=== PATIENT | female | born 2000 | race Caucasian/White ===

== ENCOUNTER 2024-09-20 12:59 | Emergency (ER) | payer MEDICAID, SELFPAY ==
[2024-09-20 13:27] VITALS: BP 102/65; PULSE 82; RESP 18; TEMP 36.7; O2SAT 100; BMI 20.5
[2024-09-20 14:10] LABS: Basophils % (Auto) 0 % (0-2.5); Eosinophils # (Auto) 0.1 Thou/mm3 (0.0-0.5); Eosinophils % (Auto) 1 % (0-10); Hematocrit 32.3 % (36.0-46.0); Hemoglobin 11.5 g/dL (12.0-16.0); Immature Granulocytes % (Auto) 0 % (0-0); Immature Granulocytes Auto 0.01 Thou/mm3 (0.00-0.00); Lymphocytes # (Auto) 1.7 Thou/mm3 (1.0-4.8); Lymphocytes % (Auto) 20 % (10-50); Mean Corpuscular HGB Conc 35.6 g/dl (31.0-37.0); Mean Corpuscular Hemoglobin 30.1 pg (25.0-35.0); Mean Corpuscular Volume 85 fL (80-100); Monocytes # (Auto) 0.6 Thou/mm3 (0.0-0.8); Monocytes % (Auto) 7 % (0-12); Neutrophils # (Auto) 6.1 Thou/mm3 (1.8-7.7); Neutrophils % (Auto) 73 % (37-80); Nucleated Red Blood Cell % 0 /100 WBC (0); Platelet Count 222 Thou/mm3 (140-440); RDW Standard Deviation 40.4 fL (36.4-46.3); Red Blood Count 3.82 Miln/mm3 (4.00-5.20); White Blood Count 8.3 Thou/mm3 (3.6-11.0)
[2024-09-20 14:32] LABS: Collection Type, Urine Clean Catch
[2024-09-20 14:49] LABS: Bilirubin,Urine Negative (Negative); Blood,Urine Negative (Negative); Clarity,Urine Clear (Clear/Hazy); Color,Urine Lt-Yellow (Lt Yel-Yel); Culture Indicated,Urine Not Indicated; Glucose, Urine Negative (Negative); Ketones,Urine Negative (Negative); Leukocyte Esterase,Urine Positive (Negative); Nitrite,Urine Negative (Negative); PH,Urine 6.5 (5.0-7.0); Protein,Urine Negative (Neg - Trace); RBC,Urine 1 /hpf (0-3); Squamous Epithelial Cell,Urine 4 /hpf (0-5); Urobilinogen,Urine Negative mg/dL (0.0-1.0); WBC,Urine 10 /hpf (0-5)
[2024-09-20 15:00] LABS: Alanine Aminotransferase 18 U/L (10-49); Albumin, Serum 4.4 gm/dL (3.5-5.0); Albumin/Globulin Ratio 1.7 (1.2-2.2); Alkaline Phosphatase 51 U/L (46-116); Anion Gap 9 (7-16); Aspartate Amino Transferase 28 U/L (0-34); BUN/Creatinine Ratio 13 Ratio (12-20); Bilirubin,Total 0.5 mg/dL (0.3-1.2); Blood Urea Nitrogen 8 mg/dL (9-23); Calcium 8.7 mg/dL (8.3-10.6); Calcium (Corrected) 8.7 mg/dL (8.5-10.1); Carbon Dioxide 23.1 mMol/L (20.0-31.0); Chloride 107 mMol/L (98-107); Creatinine (Component) 0.6 mg/dL (0.6-1.3); Estimated Creatinine Clearance 125.3 mL/min (>60); Globulin 2.6 gm/dL (2.3-3.5); Glucose 85 mg/dL (74-106); Lipase 32 U/L (12-53); Osmolality,Calculated 274 (275-295); Sodium 139 mMol/L (136-145); eGFR > 60 See Note
[2024-09-20 15:11] LABS: HCG Qualitative,Urine Positive
[2024-09-20 15:37] LABS: Beta HCG,Quantitative 127179 mIU/mL (<5.0)
--- NOTE | 2024-09-20 15:51 | XR_ITS ---
Examination: Complete OB ultrasound, less than 14 weeks, transabdominal Date and time of exam: September 20, 2024 1554 hrs. Indications: Pelvic pain beginning 2 weeks ago Technique: Obstetrical ultrasound images less than 14 weeks performed via transabdominal imaging Findings: A normal shaped single intrauterine gestation is present in the uterus. pole 1.04 cm corresponds to 7 weeks 1 day gestational age Cardiac motion 185 BPM Intrauterine device noted in the endometrium Right ovary 3.2 cm arterial flow Left ovary 3.1 cm arterial flow Ultrasonographic survey of visible and placental structures unremarkable. Amniotic fluid volume appears appropriate for this estimated gestational age. Impression: Viable intrauterine gestation 7 weeks 1 day Consider short-term follow-up pelvic sonography given the cardiac rate 185 BPM.
--- NOTE | 2024-09-20 16:22 | PD.EDFMALE ---
ED Female Urogenital RME/HPI General Chief complaint: Abdominal Pain Stated complaint: SHARP VAGINAL PAIN +PREG Time Seen by Provider: 09/20/24 13:18 Arrival date/time: 09/20/24 12:59 24-year-old female presents to the emergency department today stating that she had a positive test at home patient reports that she has an IUD in place so wants to confirm that she actually is in fact patient also reports pelvic pain patient reports no bleeding Limitations: no limitations Related Data Home Medications ?Medication ?Instructions ?Recorded ?Confirmed [id number] 1 mg 1 tab PO QDAY 09/15/20 06/10/23 tablet Previous Rx's ?Medication ?Instructions ?Recorded cephalexin 500 mg capsule 500 mg PO BID 5 days #10 caps 09/20/24 Allergies Allergy/AdvReac Type Severity Reaction Status Date / Time No Known Allergies Allergy Verified 09/20/24 13:03 Review of Systems Review of Systems Systems Reviewed: All systems reviewed, normal except as documented Constitutional Constitutional: Reports system reviewed and no additional complaints, except as documented, Denies fever(s) and Denies headache(s) Eyes Eyes: Reports system reviewed and no additional complaints, except as documented and Denies blurry vision ENT Ears, Nose, Mouth, and Throat: Reports system reviewed and no additional complaints, except as documented, Denies headache(s), Denies nasal congestion and Denies nasal discharge Cardiovascular Cardiovascular: Reports system reviewed and no additional complaints, except as documented, Denies chest pain and Denies dyspnea Respiratory Respiratory: Reports system reviewed and no additional complaints, except as documented, Denies chest congestion, Denies cough and Denies dyspnea Gastrointestinal Gastrointestinal: Reports system reviewed and no additional complaints, except as documented and Denies abdominal pain Genitourinary Genitourinary: Reports system reviewed and no additional complaints, except as documented, Denies abnormal vaginal bleeding, Reports pelvic pain, Denies vaginal discharge, Denies vaginal odor and Denies vaginal pruritus Integumentary/Breasts Skin/Breast: Reports system reviewed and no additional complaints, except as documented and Denies rash Neurologic Neurologic: Reports system reviewed and no additional complaints, except as documented, Reports as per HPI and Denies headache(s) Past Medical History Past Medical History NEUROLOGIC: Negative Neurological Disorders CARDIAC: Negative Cardiac Disorders or Congestive Heart Failure RESPIRATORY: Negative Chronic Obstructive Pulmonary Disease (COPD) GASTROINTESTINAL: Negative Gastrointestinal Disorders, Hepatitis or Colorectal Cancer GENITOURINARY: Negative Genitourinary Disorders, Renal Disease or Prostate Cancer REPRODUCTIVE: Positive Previous Pregnancies (2); Negative Breast Cancer, Endometriosis, Genital Herpes, Gonorrhea, Pelvic Inflammatory Disease, Syphilis, Testicular Cancer or Uterine Prolapse MUSCULOSKELETAL: Negative Musculoskeletal Disorders or Bone Cancer ENDOCRINE: Negative Endocrine Disorders, Diabetes Mellitus Type 1 or Diabetes Mellitus Type 2 HEMATOLOGIC: Positive Blood Disorders and Anemia; Negative Leukemia, Hemophilia, Thalassemia, Sickle Cell Disease or Clotting Problems OTHER HISTORY: Negative Hospitalization, Autoimmune Disease, Down Syndrome, Developmental Delay, Shingles, Falls, Blood Transfusions, Blood Transfusion Reaction, Anesthesia Reactions, Organ Transplant, Chemotherapy, Radiation Therapy, Hyperbaric Therapy, MRSA, VRSA, Vancomycin-Resistant Enterococci, Human Immunodeficiency Virus (HIV), Chicken Pox, Measles, Mumps, Rubella (Telugu Measles), Pertussis, Clostridium Difficile, Cancer, Breast Cancer, Cervical Cancer, Colorectal Cancer, Lung Cancer, Ovarian Cancer, Prostate Cancer or Testicular Cancer Family History FAMILY HISTORY: Positive Family Cardiac Disorders (pacemaker-grandmother); Negative Family Psychiatric Problems, Family Respiratory Disorders, Family Gastrointestinal Problems, Family Cancer, Family Surgery or Family Anesthesia Reaction Surgical History SURGICAL: Negative Cardiac Surgery, Endocrine Surgery, Ear Surgery, Abdominal Surgery, Nephrectomy, Joint Replacement, Neurologic Surgery, Mastectomy, Section, Vasectomy or Organ Transplant Social History SMOKING STATUS: Never smoker ED Exam General Limitations: Present no limitations General appearance: Present alert and in no apparent distress Head Head exam: Present atraumatic Eye Eye exam: Present normal appearance, PERRL and EOMI ENT ENT exam: Present normal exam, normal oropharynx and mucous membranes moist Neck Neck exam: Present normal inspection, full ROM and trachea midline Chest Chest inspection: Present normal inspection and symmetric chest wall rise Respiratory Respiratory exam: Present normal lung sounds bilaterally Cardiovascular Cardiovascular exam: Present regular rate, normal rhythm and normal heart sounds Abdominal Exam Abdominal exam: Present soft and normal bowel sounds Extremities Exam Extremities exam: Present normal inspection and full ROM Back Exam Back exam: Present normal inspection and full ROM Neurological Exam Neurological exam: Present alert, oriented X3 and CN II-XII intact Psychiatric Psychiatric exam: Present normal affect and normal mood Skin Skin exam: Present warm, dry, intact and normal color Course Quality Measures none Orders Category Date Time Status US OB <= 14 weeks fetus Stat Exams 09/20/24 15:51 Completed Beta HCG,Quantitative Stat Lab 09/20/24 13:40 Completed CBC Stat Lab 09/20/24 13:40 Completed Comprehensive Metabolic Panel Stat Lab 09/20/24 13:40 Completed HCG Qualitative,Urine Stat Lab 09/20/24 14:05 Completed Lipase Stat Lab 09/20/24 13:40 Completed UA, C/S IF [Urinalysis, C/S if Indicated] Stat Lab 09/20/24 14:05 Completed Vital Signs Vital signs: Vital Signs Temperature 98.0 F 09/20/24 13:27 Pulse Rate 82 09/20/24 13:27 Respiratory Rate 18 09/20/24 13:27 Blood Pressure 102/65 09/20/24 13:27 Pulse Oximetry (%) 100 09/20/24 13:27 Oxygen Delivery Method Room Air 09/20/24 13:27 O2 saturation 100% room air within normal limits Urogenital - Female MDM Narrative MDM Narrative:: 24-year-old female presents to the emergency department today stating that she had a positive test at home patient reports that she has an IUD in place so wants to confirm that she actually is in fact patient also reports pelvic pain On exam patient well-appearing patient is not appear toxic in no acute distress Lab work and imaging obtained imaging consistent with viable at this time lab work consistent with Urinalysis consistent with UTI patient be treated course of antibiotics Patient referred to OB clinic Patient discharged home in no distress to follow-up with primary care doctor in the next 24 to 48 hours and for any worsening symptoms to return to the ER immediately Patient data External records reviewed:: [facility] previous records Clinical information provided by:: patient Social determinants that could affect healthcare access:: none Patient has the following chronic illnesses:: None How is presenting disease/condition affected by chronic disease/condition?: no chronic disease Evaluation data The following diagnostics were reviewed and interpreted by me:: lab results and radiology exam(s) Lab and/or radiology exams considered but not ordered:: Labs and radiology obtain Interpretation Summary: Reviewed by me Medications / Prescriptions Medications or Prescriptions considered but not ordered:: Given Medication administrations:: Given Consultations Consultation(s) initiated? (list below): No Diagnosis Urogenital Female Differential Diagnosis: urinary tract infection and cystitis Most likely diagnosis given after review of the tests above:: UTI Admission Indicated Admission indicated?: not indicated Admission Request Was there a request for admission?: No Disposition Plan Disposition Plan: Discharge Discharge Attestation Discharge Attestation: The patient and all family members were given an opportunity to ask questions and understood the discharge instructions. Discharge instructions specifically effects, indications for sooner follow up or return to the emergency department, and the expected course of current diagnosis. Patient condition: Stable Discharge Plan Plan Patient Disposition: HOME (Self Care) Discharge Disposition comment: Stable Prescriptions/Referrals Prescriptions/Med Rec: New cephalexin 500 mg capsule 500 mg PO BID 5 Days Qty: 10 0RF No Action 1 mg Tablet 1 tab PO QDAY Referrals: Humphrey Scott MD [Physician] - 09/23/24 Problem List Clinical Impression: UTI (urinary tract infection), Pelvic pain affecting Patient/Caregiver Discharge Instructions Education Materials: Medicine for Pain Additional Instructions: Please follow-up in Dr. Scott's office Sunday at 9 AM inform the staff that you were seen in the ER and Dr. Scott states he will see you in his office Print Language: Japanese Stand Alone Forms: Mary Award Info., Patient Portal Info Letter PA/DWIGHT Supervising Physician WANDA/DWIGHT Supervising Physician: Dr akers
== END 2024-09-20 16:45 | disposition home or self-care (01) ==
PROVIDERS: Nurse Practitioner Primary Care; Emergency Provider Family Medicine; PCP Family Medicine
DX: N39.0 Urinary tract infection, site not specified (principal); O23.41 Unspecified infection of urinary tract in pregnancy, first trimester; Z3A.01 Less than 8 weeks gestation of pregnancy
CPT/HCPCS: 36415; 76801; 80053; 81001; 81025; 83690; 84702; 85025; 99284

== ENCOUNTER 2024-09-23 09:44 | Outpatient (AMB) | payer MEDICAID, SELFPAY ==
--- NOTE | 2024-09-23 10:48 | AMB.OBINITIA ---
Allergies/Home Meds Allergies & Medications Allergies No Known Allergies Allergy (Verified 09/20/24 13:03) Intake Visit Data Collection New Patient or Established: Established Patient (seen at [facility] within 3 years) Reason for Visit:: ER Follow Up Do You Feel Safe at Home: Yes Authorities Contacted: N/A PCP or OBGYN visit in last 3 months: No Smoking Status Smoking Status: Never smoker Questionnaires Social History Living Situation History Housing: House Tobacco History Smoking Status: Never smoker Alcohol History Alcohol Intake: Never Substance Use History Substance Use: thc Domestic Abuse History Do You Feel Safe at Home: Yes History of Present Illness HPI Narrative The patient presented for follow-up after a positive home test and ER visit, with an IUD in place. She initially presented to the ER on September 16, 2024, with a positive home test. During the ER visit, she had a serum hCG of 127,000 and an ultrasound on September 20, 2024, which showed a viable intrauterine gestation of 7 weeks and 1 day with a heart tone of 185 bpm. The ultrasound also noted an intrauterine device in the endometrium. The patient is seeking information about her options regarding the , including continuing the , adoption, and . She states that she hasn't made a decision yet and would like to know all her options. The patient has not reported any specific symptoms or concerns related to the at this time. Given the presence of the IUD, the patient has been informed that it will need to remain in place throughout the to avoid risking miscarriage. The IUD is embedded in the endometrium but is not interfering with the sac. LMP Unknown LIZ by LMP ? Ultrasound #1 09/20/2024 [place] at [facility] 7w1d LIZ by US #1:05/08/2025 Final LIZ 05/08/2025 Basis for Final LIZ 7w1d Sono Previous Section? LMP Unknown LIZ by LMP ? Ultrasound #1 09/20/2024 [place] at us 7w1d LIZ by US #1:05/08/2025 Final LIZ 05/08/2025 Basis for Final LIZ 7w1d Sono Previous Section? 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: Past Medical History Past Medical History: No Hx Neurological Disorders, No Hx Breast Cancer, No Hx Cardiac Disorders, No Hx Cancer, Yes Hx Blood Disorders, Yes Hx Anemia, No Hx Gastrointestinal Disorders, No Hx Renal Disease, No Hx Diabetes Mellitus Type 1 and No Hx Diabetes Mellitus Type 2 OB Initial Visit Menstrual History Menstrual reliability: approximate (month known) Flow: normal Menstrual regularity: regular Monthly: Yes Age at menarche: 12 On control pills at conception: No OB History : 3 Para: 3 Hx # Pregnancies: 1 Hx Total # of Abortions (Spontaneous & Elective): 0 # of Living Children: 3 Delivery History 1st : Child's name: MICHELLE date: 09/16/20 sex: female Gestational age at delivery (weeks): 27 Delivery type: vaginal weight (lbs): 907.185 g Delivery complications: PRE-TERM History of depression before or after : No 2nd : Child's name: ISABELLA date: 12/31/21 sex: male Delivery type: vaginal weight (lbs): 3175.147 g Delivery complications: NA History of depression before or after : No 3rd : Child's name: VINEET date: 06/11/23 sex: male Delivery type: vaginal weight (lbs): 3175.147 g Delivery complications: NA History of depression before or after : No Infection History & Risk Evaluation History of STDs: none HIV risk evaluation: low risk Hepatitis B risk evaluation: low risk Patient or partner has history of Genital Herpes: No Varicella/chicken pox status: immunized Genetic Screening & History Genetic Screening/Teratology Counseling - Includes patient, baby's father, or anyone in either family with: 1. Patient's age 35 years or older as of estimated date of delivery: No 2. Thalassemia (Danish, Kazakh, Mediterranean, or Background); MCV less than 80: No 3. Neural Tube Defect (Meningomyelocele, Spina Bifida, or Anencephaly): No 4. Congenital Heart Defect: No 5. Down Syndrome: No 6. Puneet-Sachs (Ashkenazi [place], Cajun, Maori [place]): No 7. Fermin Disease ([place]kenazi [place]): No 8. Familial Dysautonomia ([place]kenazi [place]): No 9. Sickle Cell Disease or Trait (): No 10. Hemophilia or other blood disorders: No 11. Muscular Dystrophy: No 12. Cystic Fibrosis: No 13. Imhaela's Chorea: No 14. Mental Retardation/Autism: No 15. Other inherited genetic or chromosomal disorder: No 16. Maternal Metabolic Disorder (EG,TYPE 1 Diabetes, PKU): No 17. Patient or baby's father had a child with defects not listed above: No 18. Recurrent loss or a stillbirth: No 19. Medications (including supplements, vitamins, herbs or otc drugs)/illicit/recreational drugs/alcohol since last menstrual period: No 20. Any other: No Infection History 1. Live with someone with TB or exposed to TB: No 2. Rash or viral illness since last menstrual period: No 3. Hepatitis B,C: No Other (see comments) Source: [employer] Exam General General Appearance: alert, in no apparent distress and healthy appearing Head Head exam: atraumatic Neck Neck exam: Present normal inspection and trachea midline Chest Chest inspection: Present normal inspection and symmetric chest wall rise External exam: Present normal external exam; Absent tenderness Neuro Neurological exam: Present oriented X3 Psych Psychiatric exam: Present normal affect and normal mood Results Objective Laboratory: Diagnostic Test Results and Labs: - Serum hCG (09/16/2024): 127,000 Imaging: - Ultrasound (09/20/2024): - Viable intrauterine gestation - Gestational age: 7 weeks and 1 day - heart rate: 185 bpm - Intrauterine device noted in the endometrium - Both ovaries appeared normal Office Procedures OB Clinic LOC & Office Proc's Nursing/Assessment Patient Status: Established Patient OB Clinic Nursing Assessment: Medication Reconciliation, Update PMH in EMR and Vital Signs OB Clinic Coordination of Care: Education Complex Pt/Fam, Consent,records obtained, informed consent, Lab and Imaging orders and Staff clarify orders Special Needs: Heart tones Established Patient Charge Established Patient Point Assignment: 110 Established Patient Point Charge: EP Level 3 (80-115) Bedside Ultrasounds US Transabdominal <14 weeks at bedside: Yes Assessment & Plan Diagnosis / Problem List (1) Pelvic pain affecting : Status: Acute (2) UTI (urinary tract infection): Status: Acute Plan Intrauterine with IUD in situ: - Viable intrauterine gestation at 7 weeks and 1 day confirmed by ultrasound. - heart tones of 185 bpm. - IUD embedded in endometrium. - Removal not recommended due to high miscarriage risk. Plan: - Continue expectant management of with IUD in situ. - Sp[place] Carver patient on risks and benefits of continuing with IUD in place. - Provide options for management: continuation, adoption, or termination. - If continuing : - Provide lab requisition for initial labs. - Schedule follow-up visit. - If terminating : - Provide referral for services in [place] or [place]. - If considering adoption: - Defer detailed adoption counseling until 27-30 weeks gestation. - Anticipate possible spontaneous IUD expulsion during delivery. - Plan for IUD removal post-delivery if not spontaneously expelled. Management Options: Continuation of : Benefits: - Opportunity to carry to term. - Potential for successful despite IUD presence. Risks: - Increased risk of complications due to IUD presence. - Possible spontaneous miscarriage. Adoption: Benefits: - Allows to continue while providing opportunity for child placement. - Support available through adoption agencies. Risks: - Emotional challenges of and placement process. - Same medical risks as continuing with IUD. Termination: Benefits: - Immediate resolution of -related risks. - Avoids complications associated with IUD and . Risks: - Emotional and psychological impacts. - Procedure-related risks. Reviewed all options for management with IUD in situ: - Expectant management with close monitoring. - IUD removal (not recommended due to high miscarriage risk). - termination if desired by patient. - Adoption services if patient chooses to continue but not parent.
== END 2024-09-23 11:02 | disposition home or self-care (01) ==
LOC: HODSOBC 09:44
PROVIDERS: PCP Family Medicine; Referring Provider Family Medicine; Supervising Provider Obstetrics & Gynecology; Visit Provider Obstetrics & Gynecology
DX: O09.891 Supervision of other high risk pregnancies, first trimester (principal); O23.41 Unspecified infection of urinary tract in pregnancy, first trimester; N39.0 Urinary tract infection, site not specified; Z3A.01 Less than 8 weeks gestation of pregnancy; Z97.5 Presence of (intrauterine) contraceptive device
CPT/HCPCS: 76801; 99213; G0463

== ENCOUNTER 2024-10-02 23:23 | Observation (INO) | payer MEDICAID, SELFPAY ==
[2024-10-02 23:24] VITALS: BMI 19.7
[2024-10-02 23:51] VITALS: BP 114/68; PULSE 88; RESP 18; TEMP 36.8; O2SAT 99
[2024-10-03] VITALS (15 sets, daily range): BP systolic 94–107; BP diastolic 44–76; PULSE 58–97; RESP 16–19; TEMP 36.3–37.2; O2SAT 97–100; BMI 19.7
--- NOTE | 2024-10-03 00:04 | EDNOTE_ITS ---
ED OB Contraction Preg RMI/HPI General Chief complaint: Vaginal Bleeding Stated complaint: 8WKS PREG VAG BLEEDING AND LOW ABD PAIN Time Seen by Provider: 10/03/24 00:04 Arrival date/time: 10/02/24 23:23 RME / HPI RME / HPI Narrative: This section includes all my notes and documentations, including HPI, PE, and ED course. En Salas MD HPI: 24yo female with no significant past medical history presents to the ED for complains of lower abdominal pain and vaginal bleeding. Patient states she started having significant vaginal bleeding and abdominal pain at 2300, reporting her symptoms would not resolve, so she came in for evaluation. Patient denies any fever, chills, N/V or any other associated symptoms. No other complaints reported. ROS: All negative except as documented in HPI. Physical Exam: General:? Alert and oriented.? Eyes:? Conjunctivae and lids clear.? EOMI.? PERRL. ENT:? No signs of head trauma. Neck:? Supple.? No tenderness. Heart:? RRR.? Lungs:? No respiratory distress.? Good air movement.? No rhonchi, wheezing, rales.?? Chest:? No tenderness. Abdomen:? Soft and nontender.? Normal bowel sounds.? No distension.? No rebound or guarding.?? Back:? No tenderness.?? Skin:? Warm and dry.?? Neuro:? Alert and oriented X 3.? Cranial Nerves II-XII grossly intact.? No peripheral motor deficits. Musculoskeletal: Remarkable for right wrist tenderness/deformity. All other major joints and bones are not tender with no limited ROM.? I reviewed all diagnostic test results. My review of the ultrasound is intrauterine gestation with a single live fetus of mean gestational age 9 weeks and 3 days. Blood tests are remarkable except elevated beta-hCG. At this point, diagnoses include threatened miscarriage. Treatment here included NS, Morphine, and Zofran. Patient was going to be discharged with the following instructions. Discharge Instructions from Dr. Salas: 1.? ? ? After evaluation, your baby is alive and doing well. 2.? ? ? Today, estimated gestational age is 9 3/7 weeks. 3.? ? ? Only time will determine whether you will have a successful or you will have a miscarriage.? If your symptoms stop, you can have a successful .? If your symptoms worsen, you may have a miscarriage.? If you have a miscarriage, unfortunately we won?t be able to save the baby because it?s too early.? Under 20 weeks, unfortunately we can?t help.?? 4.? ? ? See a private doctor on 10/06/2024 for recheck and further care.? No sexual activity until cleared by a doctor taking care of you.?? Ask to review all test results and official radiology reports, to make sure you receive all necessary follow-ups and monitoring. 5.? ? ? Seek immediate medical care for severe bleeding (soaking more than 3 pads per hour), intolerable pain, or with any concerns.? Prior to discharge, large vaginal bleeding noted with fetus. Confirmed with repeat ultrasound. Hemoglobin decreased significantly to 8.7. At 0344, I discussed the case with our [employer], Dr. Scott. About the presentation and exam and diagnostics and treatments here. And need of further care in the hospital. Will accept the patient. Patient was given O- blood, TXA, IV fluid, and Methergine. En Salas MD Related Data Home Medications ?Medication ?Instructions ?Recorded ?Confirmed [id number] 1 mg 1 tab PO QDAY 1 06/10/23 tablet Previous Rx's ?Medication ?Instructions ?Recorded doxycycline monohydrate 100 mg 100 mg PO BID 7 days #1 4 caps 10/03/24 capsule hydrocodone 5 mg-acetaminophen 325 1 tab PO Q6H PRN pa in 3 days #12 10/03/24 mg tablet tabs ondansetron 4 mg disintegrating 4 mg PO Q6H PRN nausea and 10/03/24 tablet vomiting 5 days #20 tabs Allergies Allergy/AdvReac Type Severity Reaction Status Date / Time No Known Allergies Allergy Verified 10/02/24 23:27 Review of Systems Review of Systems Systems Reviewed: All systems reviewed, normal except as documented Past Medical History Past Medical History NEUROLOGIC: Negative Neurological Disorders CARDIAC: Negative Cardiac Disorders or Congestive Heart Failure RESPIRATORY: Negative Chronic Obstructive Pulmonary Disease (COPD) GASTROINTESTINAL: Negative Gastrointestinal Disorders, Hepatitis or Colorectal Cancer GENITOURINARY: Negative Genitourinary Disorders, Renal Disease or Prostate Cancer REPRODUCTIVE: Positive Previous Pregnancies (2); Negative Breast Cancer, Endometriosis, Genital Herpes, Gonorrhea, Pelvic Inflammatory Disease, Syphilis, Testicular Cancer or Uterine Prolapse MUSCULOSKELETAL: Negative Musculoskeletal Disorders or Bone Cancer ENDOCRINE: Negative Endocrine Disorders, Diabetes Mellitus Type 1 or Diabetes Mellitus Type 2 HEMATOLOGIC: Positive Blood Disorders and Anemia; Negative Leukemia, Hemophilia, Thalassemia, Sickle Cell Disease or Clotting Problems OTHER HISTORY: Negative Hospitalization, Autoimmune Disease, Down Syndrome, Developmental Delay, Shingles, Falls, Blood Transfusions, Blood Transfusion Reaction, Anesthesia Reactions, Organ Transplant, Chemotherapy, Radiation Therapy, Hyperbaric Therapy, MRSA, VRSA, Vancomycin-Resistant Enterococci, Human Immunodeficiency Virus (HIV), Chicken Pox, Measles, Mumps, Rubella ([place]ian Measles), Pertussis, Clostridium Difficile, Cancer, Breast Cancer, Cervical Cancer, Colorectal Cancer, Lung Cancer, Ovarian Cancer, Prostate Cancer or Testicular Cancer Family History FAMILY HISTORY: Positive Family Cardiac Disorders (pacemaker-grandmother); Negative Family Psychiatric Problems, Family Respiratory Disorders, Family Gastrointestinal Problems, Family Cancer, Family Surgery or Family Anesthesia Reaction Surgical History SURGICAL: Negative Cardiac Surgery, Endocrine Surgery, Ear Surgery, Abdominal Surgery, Nephrectomy, Joint Replacement, Neurologic Surgery, Mastectomy, Section, Vasectomy or Organ Transplant Social History SMOKING STATUS: Current some day smoker ED Exam Narrative Physical exam: As noted in HPI. Course Quality Measures none Orders Category Date Time Status Patient Condition Routine Admission 10/03/24 04:06 Ordered SDC [Place in Surgical Day Care] Routine Admission 10/03/24 04:06 Active Activity as Tolerated Routine Care 10/03/24 04:06 Ordered Administer Rhogam NOW Care 10/03/24 01:44 Active COVID-19 Screening Questionnaire NOW Care 10/03/24 04:36 Active Clip Operative Site as Needed X1 Care 10/03/24 04:06 Active Decision to Admit X1 Care 10/03/24 04:36 Active May take PO meds w/sips of H2O PRN Care 10/03/24 04:06 Active NPO NOW Care 10/03/24 04:06 Active Obtain Written Consent For: NOW Care 10/03/24 04:06 Active Saline [Insert IV] NOW Care 10/03/24 00:04 Active Sequential Compression Device NOW Care 10/03/24 04:06 Active Transfuse,blood/blood products NOW Care 10/03/24 03:36 Active Consult to Obstetrics Stat Cons 10/03/24 03:45 Ordered Diet NPO (NOW) Diet 10/03/24 04:06 Active US OB <= 14 weeks fetus Stat Exams 10/03/24 00:05 Taken US OB <= 14 weeks fetus Stat Exams 10/03/24 02:20 Ordered Beta HCG,Quantitative Stat Lab 10/03/24 00:25 Completed CBC Stat Lab 10/03/24 00:25 Completed CBC Stat Lab 10/03/24 02:44 Completed CMP [Comprehensive Metabolic Panel] Stat Lab 10/03/24 00:25 Completed Free T4 (Free Thyroxine) Stat Lab 10/03/24 00:25 Completed Magnesium Stat Lab 10/03/24 00:25 Completed PT [Prothrombin Time with INR] Stat Lab 10/03/24 00:25 Completed PTT [Partial Thromboplastin Time] Stat Lab 10/03/24 00:25 Completed RHOGAM [Rho(D) Immune Globulin] Stat Lab 10/03/24 00:25 Results TSH [Thyroid Stimulating Hormone] Stat Lab 10/03/24 00:25 Completed Type and Screen Stat Lab 10/03/24 00:25 Results UA, C/S IF [Urinalysis, C/S if Indicated] Stat Lab 10/03/24 00:05 Ordered prbc [Red Blood Cells] Stat Lab 10/03/24 00:25 Results Ketamine Inj Med 10/03/24 04:15 Discontinued 50 mg .ROUTE .STK-MED ONE Methylergonovine Inj [Methergine Inj] Med 10/03/24 03:45 Discontinued 0.2 mg IM X1 ONE Morphine Inj Med 10/03/24 00:04 Discontinued 6 mg IVP X1 ONE Ondansetron Inj [Zofran Inj] Med 10/03/24 00:04 Discontinued 4 mg IVP X1 ONE Propofol Inj [Diprivan Inj] Med 10/03/24 04:15 Discontinued 200 mg IV .STK-MED ONE Ringers Lactated 1000 ml [Lactated Ringers] 1,000 ml Med 10/03/24 04:15 Active IV 125 mls/hr Sodium Chloride 0.9% 1000 ml [Ns] 1,000 ml Med 10/03/24 00:04 Discontinued IV 999 mls/hr Sodium Chloride 0.9% 1000 ml [Ns] 1,000 ml Med 10/03/24 03:35 Discontinued IV 999 mls/hr Succinylcholine Inj [Anectine Inj] Med 10/03/24 04:15 Discontinued 200 mg .ROUTE .STK-MED ONE Tranexamic Acid 1,000 mg Ivpb [Tranexamic Acid Ivpb] Med 10/03/24 03:38 Discontinued 1,000 mg in 100 ml IV X1 Code Status Routine Oth 10/03/24 04:06 Ordered Vital Signs Vital signs: Vital Signs Temperature 98.2 F 10/02/24 23:51 Pulse Rate 88 10/02/24 23:51 Respiratory Rate 18 10/02/24 23:51 Blood Pressure 114/68 10/02/24 23:51 Pulse Oximetry (%) 99 10/02/24 23:51 Oxygen Delivery Method Room Air 10/02/24 23:51 Vaginal Bleeding MDM Narrative MDM Narrative: Scribe Attestation: 10/02/24 - Rios, Caity Dinh am scribing for and in the presence of Dr. Salas. 24yo female with no significant past medical history presents to the ED for complains of lower abdominal pain and vaginal bleeding. Patient states she started having significant vaginal bleeding and abdominal pain at 2300, reporting her symptoms would not resolve, so she came in for evaluation. Patient denies any fever, chills, N/V or any other associated symptoms. No other complaints reported. Patient data External records reviewed:: [facility] previous records (Per chart review, patient was seen here on 09/20/24 for pelvic pain in .) Clinical information provided by:: patient Social determinants that could affect healthcare access:: none Patient has the following chronic illnesses:: none How is presenting disease/condition affected by chronic disease/condition?: no chronic disease Evaluation data The following diagnostics were reviewed and interpreted by me:: lab results and radiology exam(s) Lab and/or radiology exams considered but not ordered:: none Interpretation Summary: I reviewed all diagnostic test results. My review of the ultrasound is intrauterine gestation with a single live fetus of mean gestational age 9 weeks and 3 days. Blood tests are remarkable except elevated beta-hCG. Repeat ultrasound showed no fetus. Repeat hemoglobin decreased significantly to 8.7. Medications / Prescriptions Medications or Prescriptions considered but not ordered:: none Medication administrations:: Medication Administration History Lactated Ringer's (Lactated Ringers) 1,000 mls @ 125 mls/hr IV .Q8H SHIV Stop: 11/02/24 04:14 Discontinued Medications Sodium Chloride (Ns) 1,000 mls @ 999 mls/hr IV .Q1H1M ONE Stop: 10/03/24 01:04 Last Infusion: 10/03/24 01:26 Dose: Infused Documented By: Admin: 10/03/24 00:18 Dose: 999 mls/hr Documented By: JON Sodium Chloride (Ns) 1,000 mls @ 999 mls/hr IV .Q1H1M ONE Stop: 10/03/24 04:35 Last Admin: 10/03/24 03:56 Dose: 999 mls/hr Documented By: SHADE Tranexamic Acid (Tranexamic Acid Ivpb) 1,000 mg in 100 mls @ 200 mls/hr IV X1 ONE Stop: 10/03/24 04:07 Last Infusion: 10/03/24 04:29 Dose: Infused Documented By: Admin: 10/03/24 03:59 Dose: 200 mls/hr Documented By: SHADE Ketamine HCl (Ketamine Inj 50 Mg/Ml Syringe) Confirm Administered Dose 50 mg .ROUTE .STK-MED ONE Stop: 10/03/24 04:16 Methylergonovine Maleate (Methylergonovine Inj 0.2 Mg/Ml Vial) 0.2 mg IM X1 ONE Stop: 10/03/24 03:46 Last Admin: 10/03/24 03:59 Dose: 0.2 mg Documented By: SHADE Morphine Sulfate (Morphine Sulf Inj 10 Mg/Ml Vial) 6 mg IVP X1 ONE Stop: 10/03/24 00:05 Last Admin: 10/03/24 00:18 Dose: 6 mg Documented By: JON Ondansetron HCl (Ondansetron Inj 2 Mg/Ml Inj 2 Ml) 4 mg IVP X1 ONE; Protocol Stop: 10/03/24 00:05 Last Admin: 10/03/24 00:18 Dose: 4 mg Documented By: JON Propofol (Propofol Inj 10 Mg/Ml Vial 20 Ml) Confirm Administered Dose 200 mg IV .STK-MED ONE Stop: 10/03/24 04:16 Succinylcholine Chloride (Succinylcholine Inj 20 Mg/Ml Vial 10 Ml) Confirm Administered Dose 200 mg .ROUTE .STK-MED ONE Stop: 10/03/24 04:16 NS, Morphine, Zofran initially. After large amount of vaginal bleeding with fetus and decreased hemoglobin she was given O- blood and TXA and IV fluid and Methergine. Consultations Consultation(s) initiated? (list below): Yes Consultation #1 (Physician, Specialty, Details): At 0344, I discussed the case with our [employer], Dr. Scott. About the presenta tion and exam and diagnostics and treatments here. And need of further care in the hospital. Will accept the patient. Diagnosis Vaginal Bleeding Differential Diagnosis: missed , threatened , dysfunctional uterine bleeding, menometrorrhagia, incomplete , ectopic without intrauterine and vaginal bleeding Most likely diagnosis given after review of the tests above:: Incomplete with vaginal hemorrhage. Admission Indicated Admission indicated?: indicated Explain why admission is indicated or not indicated:: Incomplete with vaginal hemorrhage needing emergent D&C. Admission Request Was there a request for admission?: Yes Admission Attestation Admission request attestation: Discussed case with [employer] service regarding admission. Discussed patients ED course, exam findings, labs, and radiology results. Agrees to accept the patient for admission. Disposition Plan Disposition Plan: Admit Discharge Plan Plan Patient Disposition: Admit Acute Care w/in Hospital Problem List Clinical Impression: Incomplete miscarriage, Severe anemia
--- NOTE | 2024-10-03 00:05 | XR_ITS ---
Examination: Complete OB ultrasound, less than 14 weeks, transabdominal Date and time of exam: October 03, 2024 1310 hours INDICATIONS: Severe pelvic pain beginning 2 days ago Technique: Obstetrical ultrasound images less than 14 weeks performed via transabdominal imaging Findings: A normal shaped single intrauterine gestation is present in the uterus. pole 2.6 cm corresponds to 9 weeks 3 days gestational age Intrauterine device noted anterior to the gestational sac Cardiac motion 176 BPM Ultrasonographic survey of visible and placental structures unremarkable. Amniotic fluid volume appears appropriate for this estimated gestational age. Right ovary 2.5 cm arterial flow Left ovary 2.8 cm arterial flow. IMPRESSION: Viable intrauterine gestation 9 weeks 3 days
[2024-10-03] MEDS: ONDANSETRON INJ 2 MG/ML INJ 2 ML 4 MG IVP (00:18)
[2024-10-03] MEDS: MORPHINE SULF INJ 10 MG/ML VIAL 6 MG IVP (00:18)
[2024-10-03] MEDS: SODIUM CHLORIDE 0.9% 1000 ML 1,000 ML 999 ML IV ×2 (00:18→03:56)
[2024-10-03 00:38] LABS: Basophils % (Auto) 0 % (0-2.5); Eosinophils # (Auto) 0.2 Thou/mm3 (0.0-0.5); Eosinophils % (Auto) 2 % (0-10); Hematocrit 35.6 % (36.0-46.0); Hemoglobin 13.1 g/dL (12.0-16.0); Immature Granulocytes % (Auto) 0 % (0-0); Immature Granulocytes Auto 0.04 Thou/mm3 (0.00-0.00); Lymphocytes # (Auto) 1.6 Thou/mm3 (1.0-4.8); Lymphocytes % (Auto) 17 % (10-50); Mean Corpuscular HGB Conc 36.8 g/dl (31.0-37.0); Mean Corpuscular Hemoglobin 30.3 pg (25.0-35.0); Mean Corpuscular Volume 82 fL (80-100); Monocytes # (Auto) 0.6 Thou/mm3 (0.0-0.8); Monocytes % (Auto) 7 % (0-12); Neutrophils % (Auto) 74 % (37-80); Nucleated Red Blood Cell % 0 /100 WBC (0); Platelet Count 216 Thou/mm3 (140-440); RDW Standard Deviation 38.9 fL (36.4-46.3); Red Blood Count 4.32 Miln/mm3 (4.00-5.20); White Blood Count 9.4 Thou/mm3 (3.6-11.0)
[2024-10-03 00:53] LABS: Partial Thromboplastin Time 27.5 Seconds (22.0-36.0); Prothrombin Time 11.3 Seconds (9.0-12.2)
[2024-10-03 01:40] LABS: Alanine Aminotransferase 33 U/L (10-49); Albumin, Serum 4.3 gm/dL (3.5-5.0); Alkaline Phosphatase 55 U/L (46-116); Anion Gap 11 (7-16); Aspartate Amino Transferase 36 U/L (0-34); BUN/Creatinine Ratio 17 Ratio (12-20); Bilirubin,Total 0.3 mg/dL (0.3-1.2); Blood Urea Nitrogen 12 mg/dL (9-23); Calcium 8.7 mg/dL (8.3-10.6); Calcium (Corrected) 8.7 mg/dL (8.5-10.1); Carbon Dioxide 21.9 mMol/L (20.0-31.0); Chloride 107 mMol/L (98-107); Creatinine (Component) 0.7 mg/dL (0.6-1.3); Estimated Creatinine Clearance 102.9 mL/min (>60); Free T4 (Free Thyroxine) 1.32 ng/dL (0.89-1.76); Globulin 2.2 gm/dL (2.3-3.5); Glucose 94 mg/dL (74-106); Magnesium 1.8 mg/dL (1.6-2.6); Osmolality,Calculated 279 (275-295); Potassium 3.7 mMol/L (3.4-5.1); Sodium 140 mMol/L (136-145); Thyroid Stimulating Hormone 1.25 uIU/mL (0.55-4.78); Total Protein 6.5 gm/dL (5.7-8.2); eGFR > 60 See Note
[2024-10-03 02:00] LABS: Beta HCG,Quantitative 121438 mIU/mL (<5.0)
--- NOTE | 2024-10-03 02:20 | XR_ITS ---
Examination: Complete OB ultrasound, less than 14 weeks, transabdominal Date and time of exam: October 03, 2024 0329 hours INDICATIONS: Severe pelvic pain with vaginal bleeding beginning 2 weeks ago Technique: Obstetrical ultrasound images less than 14 weeks performed via transabdominal imaging Findings: Uterus 13.7 cm endometrial stripe 0.6 cm No intrauterine gestation or uterine mass Right ovary 2.2 cm arterial flow Left ovary 2.6 cm arterial flow No fluid in the cul-de-sac IMPRESSION: No intrauterine gestation or uterine mass
[2024-10-03 03:06] LABS: Basophils % (Auto) 0 % (0-2.5); Eosinophils # (Auto) 0.2 Thou/mm3 (0.0-0.5); Eosinophils % (Auto) 2 % (0-10); Hematocrit 23.9 % (36.0-46.0); Immature Granulocytes % (Auto) 0 % (0-0); Immature Granulocytes Auto 0.04 Thou/mm3 (0.00-0.00); Lymphocytes % (Auto) 17 % (10-50); Mean Corpuscular HGB Conc 36.4 g/dl (31.0-37.0); Mean Corpuscular Hemoglobin 30.4 pg (25.0-35.0); Mean Corpuscular Volume 84 fL (80-100); Monocytes # (Auto) 0.7 Thou/mm3 (0.0-0.8); Monocytes % (Auto) 6 % (0-12); Neutrophils # (Auto) 8.7 Thou/mm3 (1.8-7.7); Neutrophils % (Auto) 75 % (37-80); Nucleated Red Blood Cell % 0 /100 WBC (0); Platelet Count 230 Thou/mm3 (140-440); RDW Standard Deviation 39.5 fL (36.4-46.3); Red Blood Count 2.86 Miln/mm3 (4.00-5.20); White Blood Count 11.7 Thou/mm3 (3.6-11.0)
[2024-10-03 03:08] LABS: Hemoglobin 8.7 g/dL (12.0-16.0)
[2024-10-03] MEDS: TRANEXAMIC ACID 1,000 MG IVPB 1,000 MG/100 ML BAG 200 MG IV (03:59)
[2024-10-03] MEDS: METHYLERGONOVINE INJ 0.2 MG/ML VIAL IM (03:59)
--- NOTE | 2024-10-03 04:11 | PD.GYNHP ---
Documentation for date of: 10/03/24 EPIDEMIOLOGY INTERN - HPI History of Present Illness Reason for admission: vaginal bleeding History of present illness: Patient presents with severe acute-onset uterine bleeding that started at 2300 hours last night. She is experiencing dizziness, lightheadedness, and constant vomiting. The patient has an IUD in place and is approximately 8 weeks . She had expressed desire for elective termination of during a visit to the office last week. Due to the severity of her symptoms, particularly the vomiting and vaginal bleeding, a physical examination could not be tolerated at the time of evaluation. She is a 24-year-old female with an early gestation of approximately 8 weeks. Her obstetric history is A0 L0. The patient's condition has deteriorated since arrival at the emergency room, with high volume hemorrhage and significantly high volume uterine bleeding. She appears to be in some amount of distress due to these symptoms. Her surgical history includes IUD placement (current). The patient is currently using an IUD as her only medication/supplement. Another ultrasound result pending, delivered shows empty gestational sac after she passed products of conception however she continues to bleed quite heavily Review of Systems Review of Systems Systems Reviewed: All systems reviewed, normal except as documented Meds Home Medications and Allergies Home Medications ?Medication ?Instructions ?Recorded ?Confirmed ?Type [id number]-FA 1 mg 1 tab PO QDAY 09/15/20 06/10/23 History tablet Allergies Allergy/AdvReac Type Severity Reaction Status Date / Time No Known Allergies Allergy Verified 10/02/24 23:27 Exam - EPIDEMIOLOGY INTERN Vital Signs Temp Pulse Resp BP Pulse Ox O2 Del Method 98.0 F 61 16 94/58 L 97 Room Air 10/03/24 02:52 10/03/24 03:59 10/03/24 03:58 10/03/24 03:59 10/03/24 03:58 10/03/24 03:58 Constitutional Constitutional: no acute distress Routine HEENT Exam Head: Present normocephalic and atraumatic Eye: Present EOMI and PERRL ENT: Present mucous membranes moist Routine Neck Exam Neck: Present supple and trachea midline Routine Respiratory Exam Respiratory: Present chest non-tender, lungs clear, normal breath sounds and no resp distress Routine Cardiovascular Exam Cardiovascular: Present RRR Routine Abdominal Exam Abdominal: Present soft and normoactive bowel sounds Routine Extremities Exam Extremities: Present full ROM Routine Skin Exam Skin: Present intact and dry Routine Neurological Exam Neurological: Present alert, oriented X3 and CN II-XII intact Routine Psychiatric Exam Psychiatric: Present normal affect and normal thought process EPIDEMIOLOGY INTERN - Results Labs 10/03/24 02:44 10/03/24 00:25 Labs: Short CBC 10/03/24 10/03/24 Range/Units 00:25 02:44 WBC 9.4 11.7 H (3.6-11.0) Thou/mm3 Hgb 13.1 8.7 L D (12.0-16.0) g/dL Hct 35.6 L 23.9 L D (36.0-46.0) % Plt Count 216 230 (140-440) Thou/mm3 BMP 10/03/24 00:25 Sodium 140 Potassium 3.7 Chloride 107 Carbon Dioxide 21.9 BUN 12 Creatinine 0.7 Glucose 94 Calcium 8.7 Liver Function 10/03/24 Range/Units 00:25 Total Bilirubin 0.3 (0.3-1.2) mg/dL AST 36 H (0-34) U/L ALT 33 (10-49) U/L Alkaline Phosphatase 55 (46-116) U/L Albumin 4.3 (3.5-5.0) gm/dL Assessment and Plan Assessment and plan (1) Threatened miscarriage: Status: Acute Assessment and plan: Acute hemorrhage in early : - Admit to ambulatory surgery for suction D&C - Order 3 units of packed RBCs and 1 unit of FFP - NPO status - Notify surgical team - Further evaluation in the operating room Assessment: - Severe acute-onset uterine bleeding started at 2300 hours last night - Estimated 8 weeks based on last menstrual period - IUD in place - High-volume hemorrhage - Dizziness and lightheadedness - Constant vomiting - Significant high-volume uterine bleeding - Physical examination not possible due to patient's condition Quality Measures Quality Measures none
--- NOTE | 2024-10-03 04:28 | PC.NURSE ---
REPORT GIVEN TO COURT OROZCO FROM OR TEAM.
--- NOTE | 2024-10-03 05:16 | ESOP_ITS ---
Operative Note - PALLIATIVE CARE PHYSICIAN Procedure Date of procedure: 10/03/24 Procedure Performed: Suction dilatation and curettage Indication: 24-year-old 3 para 2 with 8 weeks gestation with intrauterine device in place New onset heavy uterine bleeding with passage of partial products of conception at home Anesthesia type: General Procedure description: Informed consent was obtained and the patient was taken to the operating room. Identity was confirmed using two patient identifiers. The patient was positioned on the operating table, and general anesthesia was administered. She was then placed in the dorsal lithotomy position using Kole stirrups. The perineum was prepped and draped in the usual sterile fashion. A straight catheter was used to empty the bladder. A weighted speculum was placed in the posterior vaginal fornix, and a right- angle retractor was used to retract the anterior vaginal wall. An atraumatic grasper was used to gently grasp the anterior lip of the cervix, which was placed under traction. Cervical length from the external to internal os was assessed, and a uterine sound was used to measure uterine depth. The cervix was noted to be dilated to approximately 10 mm. A 10 mm suction cannula was introduced through the cervical os, and multiple gentle passes were performed until evacuation of all tissue and blood clots was complete. Endometrial grating was palpated, and the uterus was noted to have contracted appropriately. The suction cannula was removed, and a gentle curettage was performed using a standard curette. All instruments were then withdrawn. Uterine bleeding was minimal. The atraumatic grasper was removed from the cervix, which was visualized and found to be hemostatic. The speculum was removed from the vaginal canal. The patient was then cleaned, undraped, and taken out of the lithotomy position. General anesthesia was reversed, and the patient was transferred to the recovery room in stable and awake condition. The procedure was well tolerated. All instrument, sponge, and lap counts were correct ?2. Estimated blood loss (ml): 300 Surgical staff Operation Date: 10/03/24 04:45 <No data on this case meets the specified criteria> Diagnosis Discharge Diagnosis (1) Severe anemia: Status: Acute (2) Incomplete miscarriage: Status: Acute Problem List Completed Was Problem List Reviewed/Reconciled?: Yes
--- NOTE | 2024-10-03 05:21 | SUR.PHASEI ---
Pt. arrived to recovery via gurney, eyes closed, rhonchi noted on inspiration, lung sounds clear, equal expansion shyann., pt. receiving 4 liters 02 via NC, subha-pad in place, small amount of bright red blood noted to subha-pad, no c/o pain or nausea at this time, pt. allowed to sleep. Report received from Lety OROZCO and Erik ACUÑA.
--- NOTE | 2024-10-03 06:08 | SUR.PHASEI ---
Called and gave report on pt. s/p surgery to Lamar OROZCO on M/S unit. Pt. is resting with eyes closed, responds to verbal commands, VSS, tolerating sips of water.
--- NOTE | 2024-10-03 06:20 | SUR.PHASEI ---
Pt. transferred to room 374 via gurney with all of belongings by staff, VSS, no c/o pain or nausea at this time, small amount of bright red blood noted to subha-pad, IV flushed and patent. Lamar OROZCO assumed care of pt.
[2024-10-03] MEDS: RINGERS LACTATED 1000 ML 1,000 ML 125 ML IV (06:44)
[2024-10-03] MEDS: ceFAZolin/D5W 2 GM IV 2 GM/100 ML BAG IV (06:48)
[2024-10-03 08:47] LABS: Basophils % (Auto) 0 % (0-2.5); Eosinophils % (Auto) 0 % (0-10); Hematocrit 25.8 % (36.0-46.0); Immature Granulocytes % (Auto) 1 % (0-0); Immature Granulocytes Auto 0.08 Thou/mm3 (0.00-0.00); Lymphocytes # (Auto) 0.7 Thou/mm3 (1.0-4.8); Lymphocytes % (Auto) 4 % (10-50); Mean Corpuscular HGB Conc 34.9 g/dl (31.0-37.0); Mean Corpuscular Hemoglobin 30.7 pg (25.0-35.0); Mean Corpuscular Volume 88 fL (80-100); Monocytes # (Auto) 0.2 Thou/mm3 (0.0-0.8); Monocytes % (Auto) 1 % (0-12); Neutrophils % (Auto) 94 % (37-80); Nucleated Red Blood Cell % 0 /100 WBC (0); Platelet Count 204 Thou/mm3 (140-440); RDW Standard Deviation 41.5 fL (36.4-46.3); Red Blood Count 2.93 Miln/mm3 (4.00-5.20)
[2024-10-03 10:00] LABS: Collection Type, Urine Clean Catch
[2024-10-03 10:18] LABS: Bacteria,Urine Rare; Bilirubin,Urine Negative (Negative); Blood,Urine 3+ (Negative); Clarity,Urine Clear (Clear/Hazy); Color,Urine Colorless (Lt Yel-Yel); Glucose, Urine Negative (Negative); Ketones,Urine Negative (Negative); Leukocyte Esterase,Urine Positive (Negative); Nitrite,Urine Negative (Negative); Protein,Urine Negative (Neg - Trace); RBC,Urine 53 /hpf (0-3); Specific Gravity,Urine 1.005 (1.001-1.035); Squamous Epithelial Cell,Urine < 1 /hpf (0-5); Urobilinogen,Urine Negative mg/dL (0.0-1.0); WBC,Urine 15 /hpf (0-5)
[2024-10-03 10:22] LABS: Culture Indicated,Urine Yes
--- NOTE | 2024-10-03 10:53 | PC.SS ---
Follow up note: Check UA (urine analysis). On IV antibiotic. Pt will return home upon dc.
--- NOTE | 2024-10-03 11:51 | PC.SS ---
SS met with patient regarding his d/c plan. Pt is alert/oriented. Pt was admitted for Suction D&C. Pt confirmed demographic and contact information is correct on facesheet. Pt resides with ficarlos manuel and kids. Pt ambulates independently without assistance or DME. Pt is ok with all ADLs. Patient?s pharmacy of choice is [facility] on [address]. Pt named her Freddie bennett medical decision maker if she is unable. Patient?s choice is to return home upon d/c. Patient's OB physician is Dr. Scott at [facility]. Pt followed up with PCP 2 weeks ago. Pt states she is not diabetic and is not on dialysis. D/C plan: Return home Next of Kin: donald Willett, phone# [phone] PCP: Dr. Gordo Dinh from [facility] Address: Correct on facesheet
--- NOTE | 2024-10-11 09:12 | PD.GYNDS ---
Planned Discharge Date 10/03/24 DS: Providers Provider Date of admission: 10/03/24 05:43 Primary care physician: Gordo Dinh MD Admitting Provider: Humphrey Scott MD Attending Provider on Admission: Freddie Hobbs MD Consults: 10/03/24 03:45 Consult to Obstetrics Stat Comment: miscarriage with heavy bleeding Consulting Provider: Humphrey Scott Attending Provider on DC: Freddie Hobbs MD Discharging Provider: Freddie Hobbs MD DS: Diagnosis Problem List Completed Was Problem List Reviewed/Reconciled?: Yes Hospital Course Hospital Course Hospital course: Patient presents with severe acute-onset uterine bleeding that started at 2300 hours last night. She is experiencing dizziness, lightheadedness, and constant vomiting. The patient has an IUD in place and is approximately 8 weeks . She had expressed desire for elective termination of during a visit to the office last week. Due to the severity of her symptoms, particularly the vomiting and vaginal bleeding, a physical examination could not be tolerated at the time of evaluation. She is a 24-year-old female with an early gestation of approximately 8 weeks. Her obstetric history is A0 L0. The patient's condition has deteriorated since arrival at the emergency room, with high volume hemorrhage and significantly high volume uterine bleeding. She appears to be in some amount of distress due to these symptoms. Her surgical history includes IUD placement (current). The patient is currently using an IUD as her only medication/supplement. 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 Discharged home later on 10/03. No problems. Discharge Plan Plan Patient Disposition: HOME (Self Care) Patient condition on transfer: Stable Prescriptions/Referrals Prescriptions/Med Rec: Continued [id number] 1 mg Tablet 1 tab PO QDAY Referrals: Gordo Dinh MD [Primary Care Provider] - In 1 week Humphrey Scott MD [Physician] - In 1 week Patient/Caregiver Discharge Instructions Discharge Activity: activity as tolerated Other Discharge Activity Instructions:: Follow up office in 1 weeks. Education Materials: Dilation and Curettage, D and C Dc, ED Possible Miscarriage ... Print Language: Tajik Stand Alone Forms: Mary Award Info., Patient Portal Info Letter Discharge Order Discharge Orders: Discharge (Routine); Ordered 10/03/24 Ordered By: Freddie Hobbs
== END 2024-10-03 13:24 | disposition home or self-care (01) ==
LOC: SERX 10-03 04:15 → S2EX 10-03 04:33 → S3SX 10-03 06:11
PROVIDERS: Admitting Provider Obstetrics & Gynecology; Emergency Provider Emergency Medicine; PCP Family Medicine; Referring Provider Obstetrics & Gynecology; Visit Provider Specialist
PROC: (CPT 58120; principal; 2024-10-03 04:30)
DX: O03.4 Incomplete spontaneous abortion without complication (principal); O21.9 Vomiting of pregnancy, unspecified; O99.011 Anemia complicating pregnancy, first trimester; Z3A.09 9 weeks gestation of pregnancy; Z97.5 Presence of (intrauterine) contraceptive device
CPT/HCPCS: 59812; 36415; 36430; 76801; 80053; 81001; 83735; 84439; 84443; 84702; 85025; 85610; 85730; 86850; 86900; 86901; 86923; 87086; 96361; 96365; 96372; 96375; 99285; A4217; G0378; J0131; J0330; J0689; J1100; J2210; J2270; J2371; J2405; J2704; J2790; J3490; J7030; J7120; J7999

== ENCOUNTER 2024-11-14 10:09 | Emergency (ER) | payer MEDICAID, SELFPAY ==
[2024-11-14 10:10] VITALS: BMI 20.9
[2024-11-14 10:21] VITALS: BP 114/72; PULSE 105; RESP 17; TEMP 36.5; O2SAT 96; BMI 20.9
[2024-11-14] MEDS: LIDOCAINE/PRILOCAINE CR 5GM 5 GM TUBE TOP (10:53)
[2024-11-14] MEDS: BACITRACIN OINT 1 GM PACKET TOP (10:54)
[2024-11-14] MEDS: DIPHTH,PERTUSS(ACELL),TET VAC 0.5 ML SYR- ADULT IMi (10:54)
[2024-11-14] MEDS: HYDROcodone/APAP 5/325 TABLET 1 TAB PO (11:02)
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
== END 2024-11-14 11:51 | disposition home or self-care (01) ==
PROVIDERS: Emergency Provider Family Medicine
DX: S70.211A Abrasion, right hip, initial encounter (principal); V89.2XXA Person injured in unspecified motor-vehicle accident, traffic, initial encounter; Z23 Encounter for immunization
CPT/HCPCS: 90471; 90715; 99283; A9270